=== PATIENT | female | born 1980 | race Caucasian/White ===

== ENCOUNTER 2017-04-25 12:11 | Day surgery (SDC) | payer OTHER ==
[2017-04-25] MEDS ORDERED: FLUMAZENIL 0.5 MG/5 ML MDV IVP ONE (13:34)
[2017-04-25] MEDS ORDERED: NALOXONE HCL 0.4 MG/ML INJ ONE (13:34)
[2017-04-25] MEDS ORDERED: MIDAZOLAM 2 MG/2 ML VIAL ONE (13:35)
[2017-04-25] MEDS ORDERED: fentaNYL 100 MCG/2 ML INJ ONE (13:35)
[2017-04-25] MEDS ORDERED: IOPAMIDOL (ISOVUE-M 300) 15 ML VIAL ONE (14:55)
[2017-04-25] MEDS ORDERED: TRIAMCINOLONE ACETONIDE 200 MG/5 ML MDV IM ONE (14:55)
[2017-04-25 15:37] VITALS: O2SAT 95
[2017-04-25] MEDS ORDERED: oxyCODONE IR 5 MG TAB PO PRN (16:35)
[2017-04-25 17:00] VITALS: BP 108/50; PULSE 60; RESP 15; TEMP 97.7
[2017-04-25] MEDS ORDERED: oxyCODONE IR 5 MG TAB PO ONE (17:00)
== END 2017-04-25 16:47 | disposition home or self-care (01) ==
LOC: FIMAGING 12:11
PROVIDERS: ATTEND Radiology Diagnostic Radiology
DX: M54.5 Low back pain (principal); M51.17 Intervertebral disc disorders with radiculopathy, lumbosacral region
CPT/HCPCS: J2250; J2310; J3010; J3301; Q9967